=== PATIENT | female | born 2000 | race Caucasian/White ===

== ENCOUNTER 2022-12-12 11:45 | Outpatient (REF) | payer MEDICAID, SELFPAY ==
--- NOTE | 2022-12-12 13:40 | PAPFT_PTH ---
PATIENT: Arianna Velásquez [facility][id number] AGE/SX: 22/F ROOM: RE12/12/[address]: Liss Cuevas : 2000 BED: DIS: 12/12/2022 SPEC #: [id number] RECD: 12/13/22 13:05 STATUS: AUBREY ROOT #: [id number] KARLENE: 12/12/22 13:[address]: Liss Cuevas DEPT: [facility] Cytology RECD BY: Ragini Albert Tissues: 1 - CX/ENDOCX FOR PAP SMEARS Procedures: PAP THIN PREP/[facility] Screening Comments: [id number] (CHLAMYDIA/GC)
[2022-12-14 15:16] LABS: Chlamydia Result Negative (Negative); GC Result Negative (Negative)
== END 2022-12-12 11:46 | disposition home or self-care (01) ==
LOC: NCHCN 11:45
PROVIDERS: Visit Provider Nurse Practitioner Family
DX: Z12.4 Encounter for screening for malignant neoplasm of cervix (principal); Z11.3 Encounter for screening for infections with a predominantly sexual mode of transmission; R87.612 Low grade squamous intraepithelial lesion on cytologic smear of cervix (LGSIL)
CPT/HCPCS: 87491; 87591; 88142